=== PATIENT | male | born 1940 | race Caucasian/White ===

== ENCOUNTER 2018-04-17 08:57 | Day surgery (SDC) | payer MEDICARE ==
[~2018-04-17] VITALS: Ht 188 cm; Wt 107.6 kg
[2018-04-17] VITALS (9 sets, daily range): BP systolic 123–138; BP diastolic 60–90
[~2018-04-17 08:57] MED LIST: ASPI-1265 PO; DULO-31 PO; METO100T7 PO; PRAV80TA3 PO; VALS1TAB48 PO
[2018-04-17] MEDS ORDERED: sod bicarbonate 150mEq in D5W 1,150 ML IV ONE (09:20)
[2018-04-17] MEDS ORDERED: diphenhydrAMINE 25mg capsule PO PRN (09:25)
[2018-04-17 10:00] LABS: BASOPHILS # (AUTO) 0.1 X10'3 (0-0.2); BASOPHILS % (AUTO) 0.8 % (0-1); EOSINOPHILS # (AUTO) 0.1 X10'3 (0-0.9); EOSINOPHILS % (AUTO) 1.4 % (0-6); HEMOGLOBIN 12.9 g/dl (14.0-17.9); LYMPHOCYTES # (AUTO) 1.4 X10'3 (1.1-4.8); MEAN CORPUSCULAR HGB CONC 33.2 g/dL (33.0-36.5); MEAN CORPUSCULAR VOLUME 93.4 FL (78-98); MEAN PLATELET VOLUME 7.7 FL (7.4-10.4); MONOCYTES # (AUTO) 0.5 X10'3 (0-0.9); MONOCYTES % (AUTO) 7.3 % (2-12); NEUTROPHILS # (AUTO) 4.9 X10'3 (1.8-7.7); NEUTROPHILS % (AUTO) 70.5 % (42-75); PLATELET COUNT 235 X10'3 (140-440); RED BLOOD COUNT 4.18 X10'6 (4.70-6.10); RED CELL DISTRIBUTION WIDTH 14.8 % (11.5-14.5); WHITE BLOOD COUNT 6.9 X10'3 (4.5-11.0)
[2018-04-17] MEDS ORDERED: ALBU8.5H8 IH (10:05)
[2018-04-17] MEDS ORDERED: HYDR-4069 PO (10:05)
[2018-04-17] MEDS ORDERED: BUDE10.2 INH (10:05)
[2018-04-17] MEDS ORDERED: FURO-149 PO (10:05)
[2018-04-17] MEDS ORDERED: ISOS120T13 PO (10:05)
[2018-04-17] MEDS ORDERED: EZET10TA14 PO (10:05)
[2018-04-17] MEDS ORDERED: CLOP75TA33 PO (10:05)
[2018-04-17] MEDS ORDERED: AMLO2.5T2 PO (10:05)
[2018-04-17 10:06] LABS: ALBUMIN 3.7 G/DL (3.4-5.0); ANION GAP 11 (8-16); BLOOD UREA NITROGEN 22 MG/DL (7-18); BUN/CREATININE RATIO 14.7 (5.4-32.0); CALCIUM 8.8 MG/DL (8.5-10.1); CHLORIDE 104 MMOL/L (99-107); GLUCOSE 87 MG/DL (70-104); MAGNESIUM 2.1 MG/DL (1.5-2.4); POTASSIUM 4.4 MMOL/L (3.5-5.1); SODIUM 140 MMOL/L (135-145); TOTAL CARBON DIOXIDE 25.5 MMOL/L (24-32); eGFR 45 ML/MIN
[2018-04-17 10:15] LABS: INR 1.1 INR; PROTHROMBIN TIME 10.7 SECONDS (9.0-12.0)
[2018-04-17] MEDS ORDERED: iohexol 350MG/ML 100ml bottle IV ONE (10:37)
[2018-04-17] MEDS ORDERED: midazolam 2 mg/2 ml injection ONE (10:37)
[2018-04-17] MEDS ORDERED: LIDOcaine 1% (10mg/ml)w/preservative injection 20ml MDV ONE (10:37)
[2018-04-17] MEDS ORDERED: fentaNYL/PF 50MCG/1 ML 2ML syringe ONE (10:37)
[2018-04-17] MEDS ORDERED: iohexol 350 MG/ML 50ML vial IV ONE ×2 (10:37→11:51)
[2018-04-17] MEDS ORDERED: pneumococcal 23-VAL P-sac vacc 25 mcg/0.5ml vial IMVAC ONE (11:35)
[2018-04-17] MEDS ORDERED: adenosine 90 MG/30ml kit =/or below 120kg Cath Lab IV ONE (11:38)
[2018-04-17] MEDS ORDERED: heparin 1,000unit/ml 10ml vial 10 ML ONE (11:44)
== END 2018-04-17 15:30 | disposition home or self-care (01) ==
LOC: SSTAY O 08:57
PROVIDERS: ATTEND Internal Medicine Cardiovascular Disease
DX: I25.119 Atherosclerotic heart disease of native coronary artery with unspecified angina pectoris (principal); I10 Essential (primary) hypertension; E78.5 Hyperlipidemia, unspecified; Z95.5 Presence of coronary angioplasty implant and graft
CPT/HCPCS: 36415; 80048; 83735; 85025; 85610; 90732; 93005; 93458; 93571; 99152; 99153; A6257; C1769; J0153; J1644; J2001; J2250; J3010; Q0163; Q9967; A4620; C1760; C1894

== ENCOUNTER 2019-09-17 06:53 | Day surgery (SDC) | payer MEDICARE ==
[2019-09-17] VITALS (15 sets, daily range): BP systolic 122–157; BP diastolic 77–104
[~2019-09-17] VITALS: Ht 182.9 cm; Wt 108.5 kg
[~2019-09-17 06:53] MED LIST changes: +ALBU8.5H8 IH; +AMLO2.5T2 PO; +BUDE10.2 INH; +CLOP75TA33 PO; +EZET10TA6 PO; +FURO-149 PO; +HYDR-4069 PO; +ISOS120T13 PO; -VALS1TAB48 PO
[2019-09-17] MEDS ORDERED: MIDAZolam 1mg/ml 10ml vial IV ONE (07:20)
[2019-09-17] MEDS ORDERED: fentaNYL/PF 50MCG/1 ML 2ML syringe IV ONE (07:20)
[2019-09-17] MEDS ORDERED: normal saline 1000ml 1,000 ML IV SCH (07:20)
[2019-09-17] MEDS ORDERED: METO100T7 PO (07:29)
[2019-09-17] MEDS ORDERED: ALB0.5UD IH (07:29)
[2019-09-17] MEDS ORDERED: APIX5TAB3 PO (07:29)
[2019-09-17 07:55] LABS: BASOPHILS # (AUTO) 0.1 X10'3 (0-0.2); BASOPHILS % (AUTO) 0.6 % (0-1); EOSINOPHILS # (AUTO) 0.1 X10'3 (0-0.9); HEMATOCRIT 43.1 % (42.0-52.0); HEMOGLOBIN 13.9 g/dl (14.0-17.9); LYMPHOCYTES # (AUTO) 2.1 X10'3 (1.1-4.8); LYMPHOCYTES % (AUTO) 19.9 % (21-51); MEAN CORPUSCULAR HGB CONC 32.3 g/dL (33.0-36.5); MEAN PLATELET VOLUME 7.9 FL (7.4-10.4); MONOCYTES # (AUTO) 0.9 X10'3 (0-0.9); MONOCYTES % (AUTO) 8.1 % (2-12); NEUTROPHILS # (AUTO) 7.4 X10'3 (1.8-7.7); NEUTROPHILS % (AUTO) 70.4 % (42-75); PLATELET COUNT 228 X10'3 (140-440); RED BLOOD COUNT 4.64 X10'6 (4.70-6.10); RED CELL DISTRIBUTION WIDTH 17.3 % (11.5-14.5); WHITE BLOOD COUNT 10.5 X10'3 (4.5-11.0)
[2019-09-17 08:00] LABS: ALBUMIN 3.6 G/DL (3.4-5.0); ANION GAP 7 (8-16); BLOOD UREA NITROGEN 35 MG/DL (7-18); BUN/CREATININE RATIO 18.6 (5.4-32.0); CALCIUM 8.6 MG/DL (8.5-10.1); CHLORIDE 104 MMOL/L (99-107); CREATININE 1.88 MG/DL (0.60-1.10); GLUCOSE 96 MG/DL (70-104); MAGNESIUM 2.2 MG/DL (1.5-2.4); POTASSIUM 3.9 MMOL/L (3.5-5.1); SODIUM 140 MMOL/L (135-145); TOTAL CARBON DIOXIDE 29.5 MMOL/L (24-32); eGFR 35 ML/MIN
[2019-09-17] MEDS ORDERED: AMIO200T62 PO (16:23)
== END 2019-09-17 11:00 | disposition home or self-care (01) ==
LOC: SSTAY O 06:53
PROVIDERS: ATTEND Internal Medicine Cardiovascular Disease
DX: I48.19 Other persistent atrial fibrillation (principal)
CPT/HCPCS: 36415; 80048; 83735; 85025; 85610; 92960; 93005; 94760; J2250; J3010; J7030

== ENCOUNTER 2019-11-08 08:16 | Day surgery (SDC) | payer MEDICARE ==
[2019-11-08] VITALS (11 sets, daily range): BP systolic 130–161; BP diastolic 73–97
[~2019-11-08] VITALS: Ht 167.6 cm; Wt 105.2 kg
[~2019-11-08 08:16] MED LIST changes: +ALB0.5UD IH; +AMIO200T62 PO; -AMLO2.5T2 PO; +APIX5TAB3 PO; -ASPI-1265 PO
[2019-11-08] MEDS ORDERED: normal saline 1000ml 1,000 ML IV SCH (08:45)
[2019-11-08] MEDS ORDERED: fentaNYL/PF 50MCG/1 ML 2ML syringe IV ONE (08:45)
[2019-11-08] MEDS ORDERED: MIDAZolam 1mg/ml 10ml vial IV ONE (08:45)
[2019-11-08 09:04] LABS: BASOPHILS # (AUTO) 0.1 X10'3 (0-0.2); BASOPHILS % (AUTO) 0.8 % (0-1); EOSINOPHILS # (AUTO) 0.2 X10'3 (0-0.9); EOSINOPHILS % (AUTO) 1.4 % (0-6); HEMATOCRIT 44.5 % (42.0-52.0); HEMOGLOBIN 14.6 g/dl (14.0-17.9); LYMPHOCYTES # (AUTO) 2.4 X10'3 (1.1-4.8); LYMPHOCYTES % (AUTO) 19.2 % (21-51); MEAN CORPUSCULAR HGB CONC 32.8 g/dL (33.0-36.5); MEAN CORPUSCULAR VOLUME 94.5 FL (78-98); MEAN PLATELET VOLUME 8.2 FL (7.4-10.4); MONOCYTES # (AUTO) 0.9 X10'3 (0-0.9); MONOCYTES % (AUTO) 7.7 % (2-12); NEUTROPHILS # (AUTO) 8.7 X10'3 (1.8-7.7); NEUTROPHILS % (AUTO) 70.9 % (42-75); PLATELET COUNT 227 X10'3 (140-440); RED BLOOD COUNT 4.71 X10'6 (4.70-6.10); RED CELL DISTRIBUTION WIDTH 17.1 % (11.5-14.5); WHITE BLOOD COUNT 12.3 X10'3 (4.5-11.0)
[2019-11-08 09:08] LABS: ALBUMIN 3.8 G/DL (3.4-5.0); ANION GAP 9 (8-16); BLOOD UREA NITROGEN 43 MG/DL (7-18); BUN/CREATININE RATIO 22.3 (5.4-32.0); CHLORIDE 104 MMOL/L (99-107); CREATININE 1.93 MG/DL (0.60-1.10); GLUCOSE 93 MG/DL (70-104); MAGNESIUM 2.2 MG/DL (1.5-2.4); POTASSIUM 3.9 MMOL/L (3.5-5.1); SODIUM 142 MMOL/L (135-145); TOTAL CARBON DIOXIDE 29.4 MMOL/L (24-32); eGFR 34 ML/MIN
[2019-11-08] MEDS ORDERED: BUDE10.2 INH (10:16)
[2019-11-08] MEDS ORDERED: PRED5TAB PO (10:16)
[2019-11-08] MEDS ORDERED: APIX5TAB3 PO (10:16)
[2019-11-08] MEDS ORDERED: ISOS30TA6 PO (10:16)
[2019-11-08] MEDS ORDERED: DIGO125T PO (10:16)
[2019-11-08] MEDS ORDERED: DULO60CA45 PO (10:16)
== END 2019-11-08 13:45 | disposition home or self-care (01) ==
LOC: SSTAY O 08:16
PROVIDERS: ATTEND Internal Medicine Cardiovascular Disease
DX: I48.0 Paroxysmal atrial fibrillation (principal); I25.118 Atherosclerotic heart disease of native coronary artery with other forms of angina pectoris; I25.5 Ischemic cardiomyopathy; I11.0 Hypertensive heart disease with heart failure; I50.9 Heart failure, unspecified; I47.2 Ventricular tachycardia; I44.7 Left bundle-branch block, unspecified; I35.0 Nonrheumatic aortic (valve) stenosis; E78.5 Hyperlipidemia, unspecified; J45.909 Unspecified asthma, uncomplicated; Z72.89 Other problems related to lifestyle; Z95.5 Presence of coronary angioplasty implant and graft; Z95.810 Presence of automatic (implantable) cardiac defibrillator; Z98.890 Other specified postprocedural states; Z79.899 Other long term (current) drug therapy
CPT/HCPCS: 36415; 80048; 83735; 85025; 85610; 92960; 93005; J2250; J3010; J7030

== ENCOUNTER 2020-03-17 07:26 | Day surgery (SDC) | payer MEDICARE ==
[2020-03-17] VITALS (10 sets, daily range): BP systolic 146–160; BP diastolic 61–100
[~2020-03-17] VITALS: Ht 188 cm; Wt 104.6 kg
[~2020-03-17 07:26] MED LIST changes: +DIGO125T PO; -DULO-31 PO; +DULO60CA45 PO; -ISOS120T13 PO; +ISOS30TA6 PO; +PRED5TAB PO
[2020-03-17] MEDS ORDERED: normal saline 1,000 ML IV SCH (07:55)
[2020-03-17] MEDS ORDERED: diphenhydrAMINE 25mg capsule PO PRN (07:55)
[2020-03-17] MEDS ORDERED: HYDR-4069 PO (08:15)
[2020-03-17] MEDS ORDERED: FURO40TA4 PO (08:17)
[2020-03-17 08:29] LABS: BASOPHILS # (AUTO) 0.1 X10'3 (0-0.2); BASOPHILS % (AUTO) 0.8 % (0-1); EOSINOPHILS # (AUTO) 0.2 X10'3 (0-0.9); EOSINOPHILS % (AUTO) 1.4 % (0-6); HEMATOCRIT 45.1 % (42.0-52.0); HEMOGLOBIN 14.8 g/dl (14.0-17.9); LYMPHOCYTES # (AUTO) 2.6 X10'3 (1.1-4.8); LYMPHOCYTES % (AUTO) 18.3 % (21-51); MEAN CORPUSCULAR HEMOGLOBIN 31.5 PG (27.0-31.0); MEAN CORPUSCULAR HGB CONC 32.8 g/dL (33.0-36.5); MEAN CORPUSCULAR VOLUME 95.9 FL (78-98); MONOCYTES # (AUTO) 0.9 X10'3 (0-0.9); MONOCYTES % (AUTO) 6.2 % (2-12); NEUTROPHILS # (AUTO) 10.3 X10'3 (1.8-7.7); NEUTROPHILS % (AUTO) 73.3 % (42-75); PLATELET COUNT 258 X10'3 (140-440); RED CELL DISTRIBUTION WIDTH 15.6 % (11.5-14.5)
[2020-03-17 08:53] LABS: ALBUMIN 4.1 G/DL (3.4-5.0); ANION GAP 8 (8-16); BLOOD UREA NITROGEN 27 MG/DL (7-18); BUN/CREATININE RATIO 15.7 (5.4-32.0); CALCIUM 8.9 MG/DL (8.5-10.1); CHLORIDE 104 MMOL/L (99-107); CREATININE 1.72 MG/DL (0.60-1.10); GLUCOSE 104 MG/DL (70-104); MAGNESIUM 2.4 MG/DL (1.5-2.4); POTASSIUM 3.8 MMOL/L (3.5-5.1); SODIUM 140 MMOL/L (135-145); TOTAL CARBON DIOXIDE 28.3 MMOL/L (24-32); eGFR 38 ML/MIN
[2020-03-17] MEDS ORDERED: midazolam 2 mg/2 ml injection ONE (09:01)
[2020-03-17] MEDS ORDERED: iohexol 350MG/ML 100ml bottle IV ONE (09:01)
[2020-03-17] MEDS ORDERED: heparin 1,000unit/ml 10ml vial 10 ML ONE (09:01)
[2020-03-17] MEDS ORDERED: fentaNYL/PF 50MCG/1 ML 2ML syringe ONE (09:01)
[2020-03-17] MEDS ORDERED: LIDOcaine 1% (10mg/ml)w/preservative injection 20ml MDV ONE (09:01)
[2020-03-17] MEDS ORDERED: iohexol 350 MG/ML 50ML vial IV ONE (09:01)
[2020-03-17] MEDS ORDERED: HYDROcodone/acetaminophen 10/325mg tab PO PRN (10:35)
[2020-03-17] MEDS ORDERED: HYDROcodone/acetaminophen 5mg/325mg tablet PO PRN (10:35)
[2020-03-17] MEDS ORDERED: ondansetron/PF 4mg/2ml inj IV PRN (10:35)
[2020-03-17] MEDS ORDERED: proCHLORperazine 10 MG/2 ml inj IV PRN (10:35)
== END 2020-03-17 13:26 | disposition home or self-care (01) ==
LOC: SSTAY O 07:26
PROVIDERS: ATTEND Internal Medicine Cardiovascular Disease
DX: R06.09 Other forms of dyspnea (principal); R07.89 Other chest pain; I25.118 Atherosclerotic heart disease of native coronary artery with other forms of angina pectoris; I11.0 Hypertensive heart disease with heart failure; I50.9 Heart failure, unspecified; I48.0 Paroxysmal atrial fibrillation; I25.5 Ischemic cardiomyopathy; I47.2 Ventricular tachycardia; I44.7 Left bundle-branch block, unspecified; I35.0 Nonrheumatic aortic (valve) stenosis; E78.5 Hyperlipidemia, unspecified; I27.20 Pulmonary hypertension, unspecified; J44.9 Chronic obstructive pulmonary disease, unspecified; Z95.5 Presence of coronary angioplasty implant and graft; Z79.899 Other long term (current) drug therapy; Z79.01 Long term (current) use of anticoagulants; Z87.11 Personal history of peptic ulcer disease; Z98.890 Other specified postprocedural states; Z72.89 Other problems related to lifestyle; Z95.0 Presence of cardiac pacemaker
CPT/HCPCS: 36415; 80048; 83735; 85025; 85610; 93005; 93460; 99152; 99153; C1760; C1769; C1894; J1644; J2001; J2250; J3010; J7030; Q0163; Q9967; A4620; A6258; C1751